=== PATIENT | male | born 1960 | race Caucasian/White ===

== ENCOUNTER 2022-09-06 20:51 | Inpatient (IN) ==
[2022-09-06] MEDS ORDERED: 0.9 % SODIUM CHLORIDE 1,000 ML IV ONE (21:08)
[2022-09-06] MEDS ORDERED: ONDANSETRON 4 MG/2 ML VIAL IV ONE ×2 (21:08→21:50)
[2022-09-06] MEDS ORDERED: fentaNYL 100 MCG/2 ML VIAL IV ONE ×2 (21:08→21:48)
[2022-09-06 21:18] LABS: POC Calcium, Ionized 1.19 (1.16-1.32); POC Creatinine 0.9 (0.6-1.2); POC Potassium 3.7 (3.3-5.1)
--- NOTE | 2022-09-06 21:37 | Emergency Department Note ---
HPI General Chief complaint: Abdominal Pain Stated complaint: abd. pain and vomiting Time Seen by Provider: 09/06/22 20:55 Source: patient Mode of arrival: wheelchair Limitations: no limitations History of Present Illness HPI Narrative: Narrative: Presents emergency department for evaluation of 2-hour history of diffuse abdominal pain with nausea and vomiting. Pain is severe. No associated diarrhea or constipation. No fever. Onset shortly after eating at [employer]. Patient is concerned about possible food poisoning. Patient also states has been off chemotherapy for the past 3 months due to 11-month history of some abdominal difficulties but he cannot really expound on these due to being uncomfortable from his current abdominal pain and nausea. He later told the nurse that his symptoms did seem to improve with stopping the chemotherapy and over the past 1 week he has had 11 pound weight gain he has been introducing his favorite foods back into his diet. No other complaints. Related Data Home Medications Medication Instructions Recorded Confirmed levothyroxine 125 mcg tablet 125 mcg PO QDAY 07/17/20 03/31/22 hydrocortisone 5 mg tablet See Rx Instructions PO .COMPLEX 08/29/20 03/31/22 Previous Rx's Medication Instructions Recorded promethazine 25 mg tablet 25 mg PO TID PRN nausea and 11/25/20 vomiting #30 tabs Allergies Allergy/AdvReac Type Severity Reaction Status Date / Time cefdinir [From Omnicef] Allergy Intermediate Loose Verified 03/31/22 09:49 Stools morphine [MORPHINE] Allergy Intermediate BURNING Verified 03/31/22 09:49 gabapentin AdvReac Severe Hypotension Verified 03/31/22 09:49 oxycodone [Oxycodone] AdvReac Intermediate Itching Verified 03/31/22 09:49 hydrocodone-acetaminophen Allergy Intermediate Itching Uncoded 03/31/22 09:49 HAY GRASS Allergy Mild INFLAMATION Uncoded 03/31/22 09:49 Rhinocort AdvReac Mild Intolerance Uncoded 03/31/22 09:49 Review of Systems ROS ROS Narrative: Narrative: As above PFSH Narrative Patient History Narrative: Narrative: Medical/Surgical/Family History All Active Problems (Updated 09/06/22 @ 21:53 by Brown Maciel MD) Abdominal pain (Acute) Vomiting (Acute) Encounter for hepatitis C screening test for low risk patient (Acute) Advanced care planning/counseling discussion (Acute) Encounter for screening for colorectal cancer in high risk patient (Acute) Neck pain (Acute) Atrial fibrillation (Acute) Colon polyp (Chronic) Abdominal mass (Chronic) Hodgkins disease (Chronic) Refused influenza vaccine (Chronic) Sepsis (Acute) Hypotension (Acute) Encounter for Health Maintenance Examination in Adult (Chronic) Adrenal gland hypofunction (Chronic) Phlebitis of superficial vein (Acute) Left foot pain (Chronic) History of nephrectomy (Acute) History of hydrocelectomy (Acute 03/27/13) History of colonoscopy (Acute 12/19/03) History of appendectomy (Acute) Renal cell carcinoma (Chronic) Systolic murmur (Acute) Melanoma of skin (Chronic) Lymphadenopathy (Acute) Hypothyroidism (Chronic) Hyperuricemia (Chronic) Hydrocele (Acute) 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 Echo [id number] aortic stenosis, EF 50% Aortic stenosis Atrial fibrillation Colon polyp Colon polyps 2003-12/19/03 Colonoscopy--Dr. Sawyer--Hyperplastic polyp. 10-year sequence. Encounter for Health Maintenance Examination in Adult Encounter for hepatitis C screening test for low risk patient Encounter for screening for colorectal cancer in high risk patient Gout Gout in right knee, uric acid level of 10.1 and positive crystals on tap; still residual right knee pain, probaby more on a degenerative basis than gouty basis at this point. The patient has declined further suppressive therapy at this point. 10/11/12 Recurrent gout/hyperuricemia--treated with Allopurinol and Colcrys. Hodgkin's paragranuloma of intra-abdominal lymph nodes H/O Hodgkin's disease, stage 2A nodular sclerosing, diagnosed 1979 with radiation to chest and spleen prophylactically and periaortic nodes. Severe local reaction to Pneumovax booster in 1999--should not be re-boostered. Should consider H. flu and meningococcal vaccines; patient hesitant to do same. Hodgkins disease Hydrocele Left hydrocele; ultrasound in Feb Hyperuricemia Gout in right knee, uric acid level of 10.1 and positive crystals on tap; still residual right knee pain, probaby more on a degenerative basis than gouty basis at this point. The patient has declined further suppressive therapy at this point. 10/11/12 Recurrent gout/hyperuricemia--treated with Allopurinol and Colcrys. Hypotension Hypothyroidism on replacement Left foot pain Lymphadenopathy (08/22/14-Gutierrez) Malignant melanoma, metastatic Medication side effect Melanoma of skin Melanoma with probable recurrence of metastatic disease. On right chest wall, anterior/posterior in 1996 with recurrence of right axillary adenopathy, 2 of 30 positive nodes in May, surgery and evaluation at [facility] at that time. No adjunctive therapy; stable PET scan in April of 2011. Review, [facility], 08/03/2012 with updated PET scan. Phlebitis of superficial vein Refused influenza vaccine Renal cell carcinoma Status post laparoscopic appendectomy and left nephrectomy in 2003 at the [facility]; stable PET scan in Apr. Sepsis Severe frontal headaches Syncope Systolic murmur secondary to aortic stenosis/regurgitation with increased intensity. Echo updated 05/11/12--moderate /1+AI. [place] 2019 echo EF 50%, moderate- severe aortic stenosis Surgical History History of appendectomy Post laparoscopic and left nephrectomy for renal cell carcinoma in 2003 at the [facility]; stable PET scan in April of 2011 History of colonoscopy (12/19/03) 12/19/03 Colonoscopy--Dr. Sawyer--Hyperplastic polyp. 10-year sequence.cologuard denied 06/2016 History of hydrocelectomy (03/27/13) History of nephrectomy Left nephrectomy for renal cell carcinoma in [address] [facility]. Family History Grandmother(maternal) Type 2 diabetes mellitus Social History Smoking Status: Never smoker Alcohol Intake Frequency: holiday/special occasion only Substance Use: does not use Exam Narrative Narrative: Narrative: Blood pressure 191/68, pulse 92, respirations 20, O2 sat 99%. General Limitations: no limitations General appearance: Present alert and other (Uncomfortable appearing.) Head Head: Present atraumatic, normocephalic and normal inspection Eye Eye: Present normal appearance, PERRL and EOMI ENT ENT: Present normal exam Neck Neck: Present normal inspection and full ROM Adbominal Abdominal: Present tenderness (Diffuse tenderness palpation throughout even to light palpation, no localizing tenderness.) Extremities Extremities: Present normal inspection Neurological Neurological: Present alert, oriented X3 and CN II-XII intact; Absent motor sensory deficit Course Vital Signs Vital signs: Vital Signs Pulse Rate 92 H 09/06/22 20:52 Respiratory Rate 20 09/06/22 20:52 Blood Pressure 191/68 09/06/22 20:52 Pulse Oximetry (%) 99 09/06/22 20:52 Oxygen Delivery Method Room Air 09/06/22 20:52 Pulse Rate 92 H 09/06/22 20:52 Respiratory Rate 20 09/06/22 20:52 Blood Pressure 191/68 09/06/22 20:52 Pulse Oximetry (%) 99 09/06/22 20:52 Oxygen Delivery Method Room Air 09/06/22 20:52 [facility] Narrative Medical decision making narrative: Narrative: 62-year-old male who presents emergency department 2-hour history of diffuse abdominal pain and vomiting. Differential diagnosis includes gastritis, obstruction, perforation, volvulus Emergency department therapies: Patient is given IV fentanyl, IV Zofran, hydrated IV fluids. Test interpreted: CT abdomen pelvis, laboratory studies pending at the time of dictation. I went to CT as the patient informed the senior technical manager that he is allergic to IV contrast. He has been receiving CTs with IV contrast once every 3 months for the past year due to follow-up of cancer and has been premedicated with 25 of Benadryl the night before orally and then [address] scan and has been getting hives. He has no history of difficulty breathing after receiving IV contrast. At this time will medicate with Benadryl 50 mg IV and Solu-Medrol 125 mg IV. He would like to have a Noncon CT ordered. Discussed that he may need repeat CT scan with IV contrast if further information is needed but at that time we will have him premedicated and the Benadryl may help with his nausea as well. He complained of ongoing pain and nausea and was given repeat dose of fentanyl IV and Zofran IV. Patient's [facility] pending further work-up. Lab Data 09/06/22 21:19 09/06/22 21:19 Labs: Lab Results 09/06/22 09/06/22 Range/Units 21:14 21:19 WBC 12.5 H (4.5-11.0) K/mcL RBC 4.72 (4.63-6.08) M/mcL Hgb 13.5 L (13.7-17.5) g/dL Hct 41.7 (40.1-51.0) % POC Hct 44.0 (41-55) MCV 88.3 (80.0-100.0) fL MCH 28.6 (26.0-34.0) pg MCHC 32.4 (31.0-36.0) g/dL RDW 14.4 (11.5-14.5) % Plt Count 227 (140-440) K/mcL MPV 12.4 (8.8-12.5) fL Immature Gran % (Auto) 0.5 (0.0-0.5) % Neut % (Auto) 64.9 (38.0-78.0) % Lymph % (Auto) 25.8 (15.5-49.0) % [place] % (Auto) 7.7 (1.0-12.0) % Eos % (Auto) 0.6 (0.0-7.0) % Baso % (Auto) 0.5 (0.0-2.0) % Lymph # (Auto) 3.21 (1.50-4.80) K/mcL [place] # (Auto) 0.96 H (0.10-0.90) K/mcL Eos # (Auto) 0.07 (0.00-0.70) K/mcL Baso # (Auto) 0.06 (0.00-0.30) K/mcL Immature Gran # 0.06 H (0.00-0.05) K/mcl Absolute Neutrophils 8.09 H (1.80-8.00) K/mcL POC Sodium 140 (133-145) POC Potassium 3.7 (3.3-5.1) POC Chloride 101 (96-108) POC Total CO2 28.0 (22-30) POC BUN 16 (6-20) POC Creatinine 0.9 (0.6-1.2) POC Glucose 125 H (70-105) POC WB Ioniz Calcium 1.19 (1.16-1.32) Discharge Plan Patient/Caregiver Discharge Instructions Pt seen by EXERCISE SCIENCE INSTRUCTOR/PA only: No Clinical Impression: Abdominal pain, Vomiting Patient Disposition: Still a Patient Condition: Undetermined Follow up with: Deion Sosa MD [Primary Care Provider] - Prescriptions: No Action hydrocortisone 5 mg tablet See Rx Instructions PO .COMPLEX Dose Instruction: 1.5 tabs (7.5 mg) in am, 1 tab (5 mg) in pm PO Rx Instructions: 3 tabs (15mg) in am, 1 tab (5mg) in pm PO tiotropium bromide [Spiriva Respimat] 1.25 mcg/actuation mist 0RF Hold Instructions: Doctor's Order levothyroxine 125 mcg tablet 125 mcg PO QDAY promethazine 25 mg tablet 25 mg PO TID PRN (Reason: nausea and vomiting) Qty: 30 3RF Rx Instructions: 1 tablet every 8 hours if needed.
[2022-09-06] MEDS ORDERED: diphenhydrAMINE 50 MG/ML VIAL IV ONE (21:45)
[2022-09-06] MEDS ORDERED: methylPREDNISolone SOD SUCC 125 MG/2 ML VIAL IV ONE (21:45)
[2022-09-06] MEDS ORDERED: ONDANSETRON 4 MG/2 ML VIAL ONE (21:53)
[2022-09-06 22:02] LABS: Basophils # (Auto) 0.06 K/mcL (0.00-0.30); Basophils % (Auto) 0.5 % (0.0-2.0); Eosinophils # (Auto) 0.07 K/mcL (0.00-0.70); Eosinophils % (Auto) 0.6 % (0.0-7.0); Hematocrit 41.7 % (40.1-51.0); Hemoglobin 13.5 g/dL (13.7-17.5); Lymphocytes # (Auto) 3.21 K/mcL (1.50-4.80); Lymphocytes % (Auto) 25.8 % (15.5-49.0); Mean Cell Volume 88.3 fL (80.0-100.0); Mean Corpuscular HGB Conc 32.4 g/dL (31.0-36.0); Mean Platelet Volume 12.4 fL (8.8-12.5); Monocytes # (Auto) 0.96 K/mcL (0.10-0.90); Monocytes % (Auto) 7.7 % (1.0-12.0); Neutrophils % (Auto) 64.9 % (38.0-78.0); Platelet Count 227 K/mcL (140-440); RBC 4.72 M/mcL (4.63-6.08); Red Cell Distribution Width 14.4 % (11.5-14.5); WBC 12.5 K/mcL (4.5-11.0)
[2022-09-06 22:29] LABS: ALT/SGPT 19 U/L (<40); AST/SGOT 26 U/L (<40); Albumin 4.2 gm/dL (3.2-5.2); Albumin/Globulin Ratio 1.2 (1.0-2.3); Alkaline Phosphatase 91 U/L (39-117); Bilirubin,Total 0.4 mg/dL (0.1-1.0); Blood Urea Nitrogen 16 mg/dL (8-23); Calcium 9.8 mg/dL (8.6-10.4); Carbon Dioxide 25 mmol/L (22-30); Chloride 99 mmol/L (96-108); Globulin 3.5 gm/dL (2.2-3.7); Glomerular Filtration Rate 90; Glucose 117 mg/dL (70-105)
[2022-09-06] MEDS ORDERED: LACTATED RINGERS 1,000 ML IV ONE (22:41)
[2022-09-06] MEDS ORDERED: HYDROmorphone 0.5 MG/0.5 ML SYRINGE IV ONE (22:57)
[2022-09-06] MEDS ORDERED: METOCLOPRAMIDE 10 MG/2 ML VIAL IV ONE (22:59)
--- NOTE | 2022-09-07 01:55 | General Surgery Consult Note ---
HPI Date of Consult Consult Date: 09/07/22 Requesting physician: Gerardo Vernon Primary Care Provider: Deion Sosa MD Consult Narrative Patient Information: Note initiated : 09/07/22 at 1:38 am Service Date, if different from initiated Date: [] Patient: Beltran Tapia a 62 y/o M admitted on for abd. pain and vomiting. Chief Complaint: [] Beltran is seen in consultation in the ER tonight after developing worsening abdominal pain throughout the course of the day today along with vomiting and some bloating as well. He was seen in the ER where a CT Scan demonstrated findings consistent with Small Bowel Obstruction. 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 He has been seen for many years at [facility] and has been on immunotherapy until this past May when he ended up discontinuing that due to perceived side effects. He has not been on any treatment for 3-4 m onths now. He has also undergone prior Left Nephrectomy for Renal Cell Carcinoma many years ago. He is not on any oral anticoagulants and denies significant pulmonary or cardiac issues. He does not recall past episodes of SBO. His most recent abdominal surgery was a Minimally Invasive Inguinal Hernia Repair in [place]. Chief complaint: Abdominal Pain Reason for consult: Small Bowel Obstruction cc:: CC: Review of Systems All systems: reviewed and no additional remarkable complaints except as stated Constitutional Additional comments: fatigue, weight fluctuations EENT Additional comments: headaches (recent Brain MRI negative for any evidence of metastatic disease) Cardiovascular Additional comments: no chest pain, arrhythmias Respiratory Additional comments: no SOB or cough Gastrointestinal Additional comments: see HPI Genitourinary Additional comments: no changes Integumentary Additional comments: no changes Neurological Additional comments: no recent issues Hematologic/Lymphatic Additional comments: no anticoagulants PFSH PFSH All Active Problems (Updated 09/07/22 @ 01:56 by Ariel Hooks MD) SBO (small bowel obstruction) (Acute) Abdominal pain (Acute) Vomiting (Acute) Encounter for hepatitis C screening test for low risk patient (Acute) Advanced care planning/counseling discussion (Acute) Encounter for screening for colorectal cancer in high risk patient (Acute) Neck pain (Acute) Atrial fibrillation (Acute) Colon polyp (Chronic) Abdominal mass (Chronic) Hodgkins disease (Chronic) Refused influenza vaccine (Chronic) Sepsis (Acute) Hypotension (Acute) Encounter for Health Maintenance Examination in Adult (Chronic) Adrenal gland hypofunction (Chronic) Phlebitis of superficial vein (Acute) Left foot pain (Chronic) History of nephrectomy (Acute) History of hydrocelectomy (Acute 03/27/13) History of colonoscopy (Acute 12/19/03) History of appendectomy (Acute) Renal cell carcinoma (Chronic) Systolic murmur (Acute) Melanoma of skin (Chronic) Lymphadenopathy (Acute) Hypothyroidism (Chronic) Hyperuricemia (Chronic) Hydrocele (Acute) 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 Echo [id number] aortic stenosis, EF 50% Aortic stenosis Atrial fibrillation Colon polyp Colon polyps 2003-12/19/03 Colonoscopy--Dr. Sawyer--Hyperplastic polyp. 10-year sequence. Encounter for Health Maintenance Examination in Adult Encounter for hepatitis C screening test for low risk patient Encounter for screening for colorectal cancer in high risk patient Gout Gout in right knee, uric acid level of 10.1 and positive crystals on tap; still residual right knee pain, probaby more on a degenerative basis than gouty basis at this point. The patient has declined further suppressive therapy at this point. 10/11/12 Recurrent gout/hyperuricemia--treated with Allopurinol and Colcrys. Hodgkin's paragranuloma of intra-abdominal lymph nodes H/O Hodgkin's disease, stage 2A nodular sclerosing, diagnosed 1979 with radiation to chest and spleen prophylactically and periaortic nodes. Severe local reaction to Pneumovax booster in 1999--should not be re-boostered. Should consider H. flu and meningococcal vaccines; patient hesitant to do same. Hodgkins disease Hydrocele Left hydrocele; ultrasound in Feb Hyperuricemia Gout in right knee, uric acid level of 10.1 and positive crystals on tap; still residual right knee pain, probaby more on a degenerative basis than gouty basis at this point. The patient has declined further suppressive therapy at this point. 10/11/12 Recurrent gout/hyperuricemia--treated with Allopurinol and Colcrys. Hypotension Hypothyroidism on replacement Left foot pain Lymphadenopathy (08/22/14-Gutierrez) Malignant melanoma, metastatic Medication side effect Melanoma of skin Melanoma with probable recurrence of metastatic disease. On right chest wall, anterior/posterior in 1996 with recurrence of right axillary adenopathy, 2 of 30 positive nodes in May, surgery and evaluation at [facility] at that time. No adjunctive therapy; stable PET scan in April of 2011. Review, [facility], 08/03/2012 with updated PET scan. Phlebitis of superficial vein Refused influenza vaccine Renal cell carcinoma Status post laparoscopic appendectomy and left nephrectomy in 2003 at the [facility]; stable PET scan in Apr. Sepsis Severe frontal headaches Syncope Systolic murmur secondary to aortic stenosis/regurgitation with increased intensity. Echo updated 05/11/12--moderate /1+AI. [place] 2019 echo EF 50%, moderate- severe aortic stenosis Surgical History History of appendectomy Post laparoscopic and left nephrectomy for renal cell carcinoma in 2003 at the [facility]; stable PET scan in April of 2011 History of colonoscopy (12/19/03) 12/19/03 Colonoscopy--Dr. Sawyer--Hyperplastic polyp. 10-year sequence.cologuard denied 06/2016 History of hydrocelectomy (03/27/13) History of nephrectomy Left nephrectomy for renal cell carcinoma in 2003 at [facility]. Family History Grandmother(maternal) Type 2 diabetes mellitus Social History household members: spouse housing: house marital status: occupational status: employed occupation: supervisor framing [employer] smoking status: Never smoker alcohol intake frequency: holiday/special occasion only substance use type: does not use MEDS/ALLERGIES Home Medications and Allergies Home Medications Medication Instructions Recorded Confirmed Type levothyroxine 125 mcg tablet 125 mcg PO QDAY 07/17/20 03/31/22 History hydrocortisone 5 mg tablet See Rx Instructions PO .COMPLEX 08/29/20 03/31/22 History promethazine 25 mg tablet 25 mg PO TID PRN nausea and 11/25/20 03/31/22 Rx vomiting #30 tabs Allergies Allergy/AdvReac Type Severity Reaction Status Date / Time cefdinir [From Omnicef] Allergy Intermediate Loose Verified 03/31/22 09:49 Stools morphine [MORPHINE] Allergy Intermediate BURNING Verified 03/31/22 09:49 gabapentin AdvReac Severe Hypotension Verified 03/31/22 09:49 oxycodone [Oxycodone] AdvReac Intermediate Itching Verified 03/31/22 09:49 hydrocodone-acetaminophen Allergy Intermediate Itching Uncoded 03/31/22 09:49 HAY GRASS Allergy Mild INFLAMATION Uncoded 03/31/22 09:49 Rhinocort AdvReac Mild Intolerance Uncoded 03/31/22 09:49 Physical Examination Vital Signs Vital signs: Pulse Resp BP Pulse Ox O2 Del Method 103 H 20 184/78 97 Room Air 09/07/22 01:17 09/06/22 20:52 09/07/22 01:17 09/07/22 01:17 09/06/22 20:52 General physical appearance General physical exam: other (alert, conversant, non toxic ) Eyes Eye exam: normal ocular movement; negative icteric ENT ENT exam: other (normal appearance ) Head Head exam IM: Present atraumatic, normal inspection and normocephalic Neck Neck exam: trachea midline Cardiovascular Cardiovascular exam IM: Present RRR Respiratory Respiratory exam: other (normal effort without distress ) Abdomen Abdomen: Present distended (somewhat firm with mild distension, minimally to non tender ) Integumentary Integumentary: Present other (normal appearing intact skin ) Neurologic Neurologic: Present other (grossly intact ) Psychiatric Psychiatric: Present oriented to time, oriented to person and oriented to place Results Labs 09/06/22 21:19 09/06/22 21:19 Labs: Abnormal lab results 09/06/22 09/06/22 09/06/22 Range/Units 21:14 21:19 21:19 WBC 12.5 H (4.5-11.0) K/mcL Hgb 13.5 L (13.7-17.5) g/dL [place] # (Auto) 0.96 H (0.10-0.90) K/mcL Immature Gran # 0.06 H (0.00-0.05) K/mcl Absolute Neutrophils 8.09 H (1.80-8.00) K/mcL VBG Lactic Acid (0.5-2.0) mmol/L Glucose 117 H (70-105) mg/dL POC Glucose 125 H (70-105) Lipase 6 L (7-60) U/L 09/06/22 Range/Units 21:21 WBC (4.5-11.0) K/mcL Hgb (13.7-17.5) g/dL [place] # (Auto) (0.10-0.90) K/mcL Immature Gran # (0.00-0.05) K/mcl Absolute Neutrophils (1.80-8.00) K/mcL VBG Lactic Acid 2.7 H (0.5-2.0) mmol/L Glucose (70-105) mg/dL POC Glucose (70-105) Lipase (7-60) U/L Diabetes panel 09/06/22 Range/Units 21:19 Sodium 138 (133-145) mmol/L Potassium 3.9 (3.3-5.1) mmol/L Chloride 99 (96-108) mmol/L Carbon Dioxide 25 (22-30) mmol/L BUN 16 (8-23) mg/dL Creatinine 0.9 (0.7-1.2) mg/dL Glucose 117 H (70-105) mg/dL Calcium 9.8 (8.6-10.4) mg/dL AST 26 (<40) U/L ALT 19 (<40) U/L Alkaline Phosphatase 91 (39-117) U/L Total Protein 7.7 (5.9-8.4) gm/dL Albumin 4.2 (3.2-5.2) gm/dL Calcium panel 09/06/22 Range/Units 21:19 Calcium 9.8 (8.6-10.4) mg/dL Albumin 4.2 (3.2-5.2) gm/dL Pituitary panel 09/06/22 Range/Units 21:19 Sodium 138 (133-145) mmol/L Potassium 3.9 (3.3-5.1) mmol/L Chloride 99 (96-108) mmol/L Carbon Dioxide 25 (22-30) mmol/L BUN 16 (8-23) mg/dL Creatinine 0.9 (0.7-1.2) mg/dL Glucose 117 H (70-105) mg/dL Calcium 9.8 (8.6-10.4) mg/dL Adrenal panel 09/06/22 Range/Units 21:19 Sodium 138 (133-145) mmol/L Potassium 3.9 (3.3-5.1) mmol/L Chloride 99 (96-108) mmol/L Carbon Dioxide 25 (22-30) mmol/L BUN 16 (8-23) mg/dL Creatinine 0.9 (0.7-1.2) mg/dL Glucose 117 H (70-105) mg/dL Calcium 9.8 (8.6-10.4) mg/dL Total Bilirubin 0.4 (0.1-1.0) mg/dL AST 26 (<40) U/L ALT 19 (<40) U/L Alkaline Phosphatase 91 (39-117) U/L Total Protein 7.7 (5.9-8.4) gm/dL Albumin 4.2 (3.2-5.2) gm/dL All other labs normal. A/P Assessment and plan (1) SBO (small bowel obstruction): Assessment and plan: Small Bowel Obstruction likely secondary either to Metastatic Malignant Melanoma or adhesions Issues are discussed and reviewed at length with he and his . He currently looks non toxic but need for admission along with IV hydration, bowel rest and NGT decompression is reviewed and discussed at length. If the obstruction is related to adhesions alone then this might resolve non operatively but if related to intra abdominal mets then it likely will not without some form of intervention. Inpatient oncologic resources at our facility are very limited and it would be reasonable to proceed to [place] for care with his [facility] Oncologic Team to discuss therapy options for him going forward in this setting. He has expressed some interest in going home tonight and discussing this with his Oncologist in [place] tomorrow. Concerns regarding pain control, hydration and other issues are related and discussed at length. We're happy to admit him tonight for NGT Decompression, Bowel Rest, IVFs, Pain Control and ongoing observational management but with possible need for operative intervention to be determined. Plan discussed with he and his who will let us know how they would like to proceed Status: Acute Time Spent With Patient Time: Total time spent is greater than 50% in coordination of care (as documented) at patient's floor/unit and/or counseling patient:
[2022-09-07] MEDS ORDERED: HYDROmorphone 0.5 MG/0.5 ML SYRINGE IV PRN (02:18)
--- NOTE | 2022-09-07 02:19 | Emergency Department Note ---
Course Course Course Narrative: Patient is a 62-year-old male signed out to me by Dr. Maciel. Briefly, patient presented due to abdominal pain. At the time of signout patient's CT abdomen and pelvis was pending. Vital Signs Vital signs: Vital Signs Pulse Rate 92 H 09/06/22 20:52 Respiratory Rate 20 09/06/22 20:52 Blood Pressure 191/68 09/06/22 20:52 Pulse Oximetry (%) 99 09/06/22 20:52 Oxygen Delivery Method Room Air 09/06/22 20:52 Pulse Rate 103 H 09/07/22 01:17 Respiratory Rate 20 09/06/22 20:52 Blood Pressure 184/78 09/07/22 01:17 Pulse Oximetry (%) 97 09/07/22 01:17 Oxygen Delivery Method Room Air 09/06/22 20:52 MDM MDM Narrative Medical decision making narrative: Narrative: Patient is a 62-year-old male who presents to the emergency department due to abdominal pain. Patient CT scan has resulted and demonstrates small bowel obstruction that may be mechanical with transition point in the area of the left renal fossa. There is a splenic mass read on the CT. Patient states that he already knows about the splenic mass. I have spoken to Dr. Hooks. He does state some concern about the possibility that his bowel obstruction could be due to known metastatic melanoma. Dr. Hooks did come to the emergency department and spoke to the patient. He gave the patient the option of staying versus calling [facility] where his oncology team is. Patient did take some time to think and spoke to his . They did decide that they would prefer to stay at [facility]. We have messaged Dr. Hooks to let him know what their decision is. We will admit patient. Lab Data 09/06/22 21:19 09/06/22 21:19 Labs: Lab Results 09/06/22 09/06/22 09/06/22 Range/Units 21:14 21:19 21:19 WBC 12.5 H (4.5-11.0) K/mcL RBC 4.72 (4.63-6.08) M/mcL Hgb 13.5 L (13.7-17.5) g/dL Hct 41.7 (40.1-51.0) % POC Hct 44.0 (41-55) MCV 88.3 (80.0-100.0) fL MCH 28.6 (26.0-34.0) pg MCHC 32.4 (31.0-36.0) g/dL RDW 14.4 (11.5-14.5) % Plt Count 227 (140-440) K/mcL MPV 12.4 (8.8-12.5) fL Immature Gran % (Auto) 0.5 (0.0-0.5) % Neut % (Auto) 64.9 (38.0-78.0) % Lymph % (Auto) 25.8 (15.5-49.0) % Hart % (Auto) 7.7 (1.0-12.0) % Eos % (Auto) 0.6 (0.0-7.0) % Baso % (Auto) 0.5 (0.0-2.0) % Lymph # (Auto) 3.21 (1.50-4.80) K/mcL Hart # (Auto) 0.96 H (0.10-0.90) K/mcL Eos # (Auto) 0.07 (0.00-0.70) K/mcL Baso # (Auto) 0.06 (0.00-0.30) K/mcL Immature Gran # 0.06 H (0.00-0.05) K/mcl Absolute Neutrophils 8.09 H (1.80-8.00) K/mcL VBG Lactic Acid (0.5-2.0) mmol/L POC Sodium 140 (133-145) Sodium 138 (133-145) mmol/L POC Potassium 3.7 (3.3-5.1) Potassium 3.9 (3.3-5.1) mmol/L POC Chloride 101 (96-108) Chloride 99 (96-108) mmol/L Carbon Dioxide 25 (22-30) mmol/L POC Total CO2 28.0 (22-30) Anion Gap 14.0 (8.0-16.0) POC BUN 16 (6-20) BUN 16 (8-23) mg/dL Creatinine 0.9 (0.7-1.2) mg/dL POC Creatinine 0.9 (0.6-1.2) GFR Calculation 90 Glucose 117 H (70-105) mg/dL POC Glucose 125 H (70-105) Calcium 9.8 (8.6-10.4) mg/dL POC WB Ioniz Calcium 1.19 (1.16-1.32) Total Bilirubin 0.4 (0.1-1.0) mg/dL AST 26 (<40) U/L ALT 19 (<40) U/L Alkaline Phosphatase 91 (39-117) U/L Total Protein 7.7 (5.9-8.4) gm/dL Albumin 4.2 (3.2-5.2) gm/dL Globulin 3.5 (2.2-3.7) gm/dL Albumin/Globulin Ratio 1.2 (1.0-2.3) Lipase 6 L (7-60) U/L 09/06/ Range/Units 21:21 WBC (4.5-11.0) K/mcL RBC (4.63-6.08) M/mcL Hgb (13.7-17.5) g/dL Hct (40.1-51.0) % POC Hct (41-55) MCV (80.0-100.0) fL MCH (26.0-34.0) pg MCHC (31.0-36.0) g/dL RDW (11.5-14.5) % Plt Count (140-440) K/mcL MPV (8.8-12.5) fL Immature Gran % (Auto) (0.0-0.5) % Neut % (Auto) (38.0-78.0) % Lymph % (Auto) (15.5-49.0) % Hart % (Auto) (1.0-12.0) % Eos % (Auto) (0.0-7.0) % Baso % (Auto) (0.0-2.0) % Lymph # (Auto) (1.50-4.80) K/mcL Hart # (Auto) (0.10-0.90) K/mcL Eos # (Auto) (0.00-0.70) K/mcL Baso # (Auto) (0.00-0.30) K/mcL Immature Gran # (0.00-0.05) K/mcl Absolute Neutrophils (1.80-8.00) K/mcL VBG Lactic Acid 2.7 H (0.5-2.0) mmol/L POC Sodium (133-145) Sodium (133-145) mmol/L POC Potassium (3.3-5.1) Potassium (3.3-5.1) mmol/L POC Chloride (96-108) Chloride (96-108) mmol/L Carbon Dioxide (22-30) mmol/L POC Total CO2 (22-30) Anion Gap (8.0-16.0) POC BUN (6-20) BUN (8-23) mg/dL Creatinine (0.7-1.2) mg/dL POC Creatinine (0.6-1.2) GFR Calculation Glucose (70-105) mg/dL POC Glucose (70-105) Calcium (8.6-10.4) mg/dL POC WB Ioniz Calcium (1.16-1.32) Total Bilirubin (0.1-1.0) mg/dL AST (<40) U/L ALT (<40) U/L Alkaline Phosphatase (39-117) U/L Total Protein (5.9-8.4) gm/dL Albumin (3.2-5.2) gm/dL Globulin (2.2-3.7) gm/dL Albumin/Globulin Ratio (1.0-2.3) Lipase (7-60) U/L Discharge Plan Patient/Caregiver Discharge Instructions Pt seen by PHYSICAL THERAPIST AIDE/PA only: No Clinical Impression: Abdominal pain, Vomiting, Small bowel obstruction Patient Disposition: Xfer As Inpt ([facility]) Condition: Undetermined Follow up with: Deion Sosa MD [Primary Care Provider] - Prescriptions: No Action hydrocortisone 5 mg tablet See Rx Instructions PO .COMPLEX Dose Instruction: 1.5 tabs (7.5 mg) in am, 1 tab (5 mg) in pm PO Rx Instructions: 3 tabs (15mg) in am, 1 tab (5mg) in pm PO tiotropium bromide [Spiriva Respimat] 1.25 mcg/actuation mist 0RF Hold Instructions: Doctor's Order levothyroxine 125 mcg tablet 125 mcg PO QDAY promethazine 25 mg tablet 25 mg PO TID PRN (Reason: nausea and vomiting) Qty: 30 3RF Rx Instructions: 1 tablet every 8 hours if needed.
[2022-09-07] MEDS ORDERED: ONDANSETRON 4 MG/2 ML VIAL IV PRN (02:26)
[2022-09-07] MEDS: PIPERACILLIN SODIUM/TAZOBACTAM 3.375 GM in DEXTROSE 5% IN WATER 50 ML IV SCH ×4 (02:46→20:25)
[2022-09-07] MEDS: DEXTROSE 5%-LR 1,000 ML IV SCH ×4 (05:14→21:58)
--- NOTE | 2022-09-07 06:07 | XRay Report ---
INDICATION: NG tube placement TECHNIQUE: Supine abdomen. COMPARISON: CT scans dated 09/06/2022, 05/01/2020, 04/13/2020 FINDINGS:There is an esophagogastric tube in place. The tip is at the level of the diaphragm, presumably the gastroesophageal junction. Sidehole catheter is in the distal esophagus. This tube should be advanced. There is dilated gas-filled small bowel consistent with mechanical small bowel obstruction IMPRESSION: 1. Esophagogastric tube with its tip at the level of the gastroesophageal junction. This should be advanced 2. Findings consistent with mechanical small bowel obstruction Interpreted and Authenticated by: Arsen Segura 09/07/22
--- NOTE | 2022-09-07 06:44 | Cat Scan Report ---
INDICATION: abd pain, vomiting. History of left renal cancer, melanoma, Hodgkin's lymphoma. COMPARISON: Previous CT scans dated 04/13/2020, 02/08/2020, 06/29/2016 TECHNIQUE: Axial images were obtained through the abdomen and pelvis. Sagittally and coronally reformatted images. FINDINGS: Examination was initially interpreted by [facility] Lung bases:No pulmonary parenchymal nodules at either lung base. No parenchymal consolidation. There is mild parenchymal density consistent with dependent atelectasis. There is atherosclerotic coronary artery calcification. Liver: 6 mm low-density abnormality in the right lobe of liver, anterior to the gallbladder fossa. This is stable. No new focal intrahepatic mass identified. Liver contour is smooth. Gallbladder, bilary:No calcified gallstones. No gallbladder wall thickening. No pericholecystic fluid. No dilated bile ducts Spleen:There is a splenic mass. This is heterogeneous and may be necrotic or partially cystic. This was better evaluated on previous contrast enhanced CT scans. This currently measures approximately 10 cm in maximum diameter. This has increased in size since previous examination. This patient states that he is followed at another institution. Etiology of this mass is not certain but malignancy is possible. Correlation with this patient's outside medical history and possible biopsy are recommended. Pancreas:No pancreatic mass. No peripancreatic abnormality Adrenal glands:Negative Kidneys,ureters,bladder:Previous left nephrectomy. There is no mass in the nephrectomy bed. Right kidney is negative. There is no hydronephrosis. No detectable mass on this noncontrast enhanced examination. No hydroureter. No ureteral calculus. No bladder stone. No detectable bladder mass. Gastrointestinal:No detectable colonic mass. No evidence for diverticulitis Dilated fluid-filled small bowel consistent with mechanical small bowel obstruction. Small bowel diameter measures approximately 3.5 cm. A well-defined transition point is difficult to identify. There is no evidence for closed loop obstruction. Negative stomach and duodenum. No focal abnormality. Appendix: The appendix is not well visualized and may have been removed. Clinical correlation necessary Vascular:There is calcification of the abdominal aorta. No abdominal aortic aneurysm Lymphatic:No retroperitoneal adenopathy. No significant mesenteric adenopathy. Mesentery, peritoneum:There is mild free intraperitoneal fluid within the pelvis. There is no intra-abdominal abscess. There is no pneumoperitoneum. Reproductive:Post date is not significantly enlarged Musculoskeletal:No lumbar compression fractures. No lytic lesions. Sacrum, pelvis, hips are negative No anterior abdominal wall or inguinal hernia. IMPRESSION: 1. Mechanical small bowel obstruction without well-defined transition point. 2. Previous left nephrectomy for treatment of left renal cell carcinoma 3. 10 cm splenic mass is increased in size since previous examinations. Malignancy is possible 4. Extensive atherosclerotic calcification, advanced for age 5. Small amount of free intraperitoneal fluid. No intra-abdominal abscess The exam was performed using radiation dose optimization techniques including, but not limited to, automated exposure control, adjustment of the mA and/or kV according to patient size and use of iterative reconstruction technique. Interpreted and Authenticated by: Arsen Segura 09/07/22
--- NOTE | 2022-09-07 19:59 | General Surgery Progress Note ---
SUBJECTIVE Subjective Patient information: Note initiated : 09/07/22 at 1330 pm Service Date, if different from initiated Date: [] Patient: Beltran Tapia 62 y/o M admitted on 09/07/22 for abd. pain and vomiting. Chief Complaint: [] Feels better this afternoon with near complete resolution of his pain. NGT output has been high and he continues to not pass gas or stool. Constitutional Vitals: Vital Signs Temp Pulse Resp BP Pulse Ox O2 Del Method 98.1 F 90 18 145/67 93 Room Air 09/07/22 15:56 09/07/22 15:56 09/07/22 15:56 09/07/22 15:56 09/07/22 15:56 09/07/22 15:56 Period Temp Pulse Resp BP Sys/Bhatia Pulse Ox O2 Del Method O2 Flow Rate Last 24 Hr 97.8 F-98.1 F 88-108 18-20 132-210/59-113 85-100 Nasal Cannula-Room Air Intake and Output 09/07/22 09/07/22 09/07/22 03:59 11:59 19:59 Intake Total 0 1050 50 Output Total 1150 Balance 2049 1050 -1100 Weight 164 lb 146 lb 3.2 oz Patient Weight 09/08/22 03:59 Weight 146 lb 3.2 oz Intake & Output: Intake & Output 09/07/22 09/07/22 09/07/22 03:59 11:59 19:59 Intake Total 0 1050 50 Output Total 1150 Balance 2049 1050 -1100 Weight 164 lb 146 lb 3.2 oz Intake: IV 2049 1050 50 Sodium Chloride 0.9% 1,000 ml @ 1000 Wide Open IV [facility] Rx#: [id number] Dextrose 5%-Lactated Ringers 1, 1000 000 ml @ 150 mls/hr IV .[id number] [facility] Rx#:[id number] Lactated Ringers 1,000 ml @ 1000 Wide Open IV [facility] Rx#: [id number] Zosyn 3.375 gm In Dextrose 5% 50 50 50 in Water 50 ml @ 100 mls/hr IV Q6H [facility] Rx#:[id number] Tube Feeding 0 Output: Gastric Drainage 1150 Right Nare 1150 Other: Percent of Meal Consumed 0% Urine Color Yellow Exam: he looks well, no distress Respiratory Additional comments: normal effort without distress Cardiovascular Cardiovascular exam: Present normal rate and rhythm GI/Abdominal Additional comments: much soft, non tender without distension NGT is functional and in place Extremities Exam Additional comments: well perfused A/P Assessment and plan (1) Small bowel obstruction: Assessment and plan: Small Bowel Obstruction Stage IV Malignant Melanoma with Intra Abdominal Mets The CT from yesterday confirmed progression of the Splenic Mass off of his recent therapy without evidence of other intra abdominal mets but the obstruction is certainly worrisome for more widespread intra abdominal disease as was discussed with him in the ED last night For now, will continue bowel rest with NGT decompression and re check plain films in the AM Status: Acute Time Spent With Patient Time: Total time spent is greater than 50% in coordination of care (as documented) at patient's floor/unit and/or counseling patient:
[2022-09-07] MEDS ORDERED: HYDROCORTISONE 10 MG TABLET PO SCH (21:00)
[2022-09-07] MEDS: PANTOPRAZOLE 40 MG VIAL IV SCH (21:58)
[2022-09-08] MEDS: PIPERACILLIN SODIUM/TAZOBACTAM 3.375 GM in DEXTROSE 5% IN WATER 50 ML IV SCH ×4 (00:12→18:27)
[2022-09-08] MEDS: DEXTROSE 5%-LR 1,000 ML IV SCH ×2 (06:18→13:03)
[2022-09-08 06:27] LABS: Hematocrit 39.7 % (40.1-51.0); Hemoglobin 12.6 g/dL (13.7-17.5); Mean Cell Volume 91.5 fL (80.0-100.0); Mean Corpuscular HGB Conc 31.7 g/dL (31.0-36.0); Mean Platelet Volume 12.7 fL (8.8-12.5); Platelet Count 165 K/mcL (140-440); RBC 4.34 M/mcL (4.63-6.08); WBC 19.5 K/mcL (4.5-11.0)
[2022-09-08 06:40] LABS: Blood Urea Nitrogen 18 mg/dL (8-23); Calcium 9.2 mg/dL (8.6-10.4); Carbon Dioxide 28 mmol/L (22-30); Chloride 101 mmol/L (96-108); Glomerular Filtration Rate 80; Glucose 125 mg/dL (70-105)
--- NOTE | 2022-09-08 07:41 | XRay Report ---
INDICATION: eval sbo TECHNIQUE: Supine and upright abdomen. COMPARISON: Previous plain film examination dated 09/07/2022. Previous CT scan dated 09/06/2022 FINDINGS:Esophagogastric tube remains in unchanged position. Tip is in the gastric fundus with the side hole just above the gastroesophageal junction. Bowel gas pattern is significantly improved. There is some small bowel gas. No significant dilatation. No air-fluid levels. There is gas throughout the colon. There is no pneumatosis. No biliary or portal venous gas. No pneumoperitoneum. IMPRESSION: Improved bowel gas pattern. Findings consistent with resolution of mechanical small bowel obstruction Interpreted and Authenticated by: Arsen Segura 09/08/22
[2022-09-08] MEDS ORDERED: HYDROCORTISONE 10 MG TABLET PO SCH (08:00)
[2022-09-08] MEDS ORDERED: LEVOTHYROXINE 125 MCG TABLET PO SCH (09:00)
[2022-09-08] MEDS: PANTOPRAZOLE 40 MG VIAL IV SCH (09:38)
--- NOTE | 2022-09-08 12:18 | General Surgery Progress Note ---
SUBJECTIVE Subjective Patient information: Note initiated : 09/08/22 at 12:13 pm Service Date, if different from initiated Date: [] Patient: Beltran Tapia 62 y/o M admitted on 09/07/22 for abd. pain and vomiting. Chief Complaint: [] Feels much improved, now passing gas, pain nearly fully resolved. Plain films look improved as well. Constitutional Vitals: Vital Signs Temp Pulse Resp BP Pulse Ox O2 Del Method 98.0 F 80 18 150/65 98 Room Air 09/08/22 07:13 09/08/22 07:13 09/08/22 07:13 09/08/22 07:13 09/08/22 04:00 09/08/22 04:00 Period Temp Pulse Resp BP Sys/Bhatia Pulse Ox O2 Del Method O2 Flow Rate Last 24 Hr 97.3 F-98.9 F 75-95 18-18 145-150/53-69 93-98 Room Air-Room Air Intake and Output 09/08/22 09/08/22 09/08/22 03:59 11:59 19:59 Intake Total 100 1030 Output Total 350 Balance -250 1030 Weight 164 lb 9 oz 164 lb 9 oz Patient Weight 09/09/22 03:59 Weight 164 lb 9 oz Intake & Output: Intake & Output 09/08/22 09/08/22 09/08/22 03:59 11:59 19:59 Intake Total 100 1030 Output Total 350 Balance -250 1030 Weight 164 lb 9 oz 164 lb 9 oz Intake: IV 100 1000 Dextrose 5%-Lactated Ringers 1, 1000 000 ml @ 125 mls/hr IV .Q8H [facility] Rx#:[id number] Zosyn 3.375 gm In Dextrose 5% 100 in Water 50 ml @ 100 mls/hr IV Q6H [facility] Rx#:[id number] Oral 30 Output: Gastric Drainage 350 Right Nare 350 Other: # Voids 1 1 Exam: looks well, non toxic, NAD Respiratory Respiratory exam: Present normal respiratory exam Cardiovascular Cardiovascular exam: Present normal rate and rhythm and RRR GI/Abdominal Additional comments: soft and non tender, non distended, NGT in place A/P Assessment and plan (1) Small bowel obstruction: Status: Acute Plan Resolving SBO Check SBFT today to assure full resolution prior to NGT removal and initiation of Clear Liquids Issues discussed and reviewed at length and they have a good understanding of the current plan Time Spent With Patient Time: Total time spent is greater than 50% in coordination of care (as documented) at patient's floor/unit and/or counseling patient:
[2022-09-08] MEDS ORDERED: DIATRIZOATE MEGLU/DIATRIZO SOD 120 ML BOTTLE PO ONE (14:17)
--- NOTE | 2022-09-08 14:21 | XRay Report ---
INDICATION: eval for fully resolved SBO TECHNIQUE: Water-soluble contrast material was injected through the esophagogastric tube COMPARISON: Previous CT scan dated 09/06/2022 FINDINGS: Duodenum, jejunum, ileum are normal. No dilatation. No transition point. No evidence for obstruction. There is contrast material within the rectum at 1 hour and 15 minutes post ingestion. Small bowel appearance is normal and findings are consistent with resolution of small bowel obstruction IMPRESSION: 1. Findings consistent with resolution of small bowel obstruction 2. Contrast material in the rectum by 1 hour and 15 minutes post ingestion Interpreted and Authenticated by: Arsen Segura 09/08/22
[2022-09-08] MEDS ORDERED: DEXTROSE 5%-LR 1,000 ML IV SCH (14:32)
== END 2022-09-08 20:33 | disposition home or self-care (01) | DRG 389 ==
LOC: ED 20:51 → MEDSUR 09-07 04:17
PROVIDERS: ADMIT Surgery Surgical Critical Care; ATTEND Surgery Surgical Critical Care